=== PATIENT | male | born 1930 | race Caucasian/White ===

== ENCOUNTER 2020-11-13 17:42 | Inpatient (IN) | payer MEDICARE ==
[~2020-11-13] VITALS: Ht 175.3 cm; Wt 54.4 kg
[~2020-11-13 17:42] MED LIST: ASPIR-TRIN325 MG PO; CRESTOR5 MG PO; GABAPENTIN300 MG PO; GLIPIZIDE5 MG PO; LISINOPRIL20 MG PO; METOPROLOL SUCC50 MG PO; PLAVIX75 MG PO; PLETAL50 MG PO
[2020-11-13] MEDS ORDERED: SODIUM CHLORIDE 0.9% 1000ML 1,000 ML IV STA (17:44)
[2020-11-13] MEDS ORDERED: ASPIRIN 81 MG CHEW TAB PO ONE ×2 (17:45→19:30)
[2020-11-13] MEDS ORDERED: ACETAMINOPHEN 325 MG TAB PO STA (18:08)
[2020-11-13 18:52] LABS: BASOPHILS % 0.1 % (0.0-1.0); HEMATOCRIT 31.7 % (38.2-49.6); HEMOGLOBIN 10.2 g/dL (14.0-18.0); LYMPHOCYTES # (AUTO) 0.6 (1.0-3.2); LYMPHOCYTES % 6.9 % (18.0-39.1); MEAN CORPUSCULAR HEMOGLOBIN 29.7 pg (28-32); MEAN CORPUSCULAR HGB CONC 32.2 g/dL (31-35); MEAN CORPUSCULAR VOLUME 92.4 fL (81-99); MONOCYTES # (AUTO) 0.9 (0.2-0.8); MONOCYTES % 11.7 % (4.4-11.3); NEUTROPHILS # (AUTO) 6.4 (2.1-6.9); NEUTROPHILS % 80.5 % (38.7-80.0); PLATELET COUNT 180 x10e3/uL (140-360); RED BLOOD COUNT 3.43 x10e6/uL (4.3-5.7); RED CELL DISTRIBUTION WIDTH 15.7 % (11.7-14.4)
[2020-11-13 19:10] LABS: ALBUMIN 3.6 g/dL (3.5-5.0); ALBUMIN/GLOBULIN RATIO 1.1 (0.8-2.0); ANION GAP 18.8 mmol/L (8-16); CALCIUM 8.5 mg/dL (8.4-10.2); CREATININE, SERUM 1.68 mg/dL (0.72-1.25); POTASSIUM 3.8 mmol/L (3.5-5.1)
[2020-11-13 19:16] LABS: CREATINE KINASE MB 1.8 ng/mL (0-5.0)
[2020-11-13] MEDS ORDERED: ENOXAPARIN INJ 80 MG/0.8 ML SYR SC STA (19:44)
[2020-11-13] MEDS ORDERED: FUROSEMIDE INJ 10 MG/ML 2 ML VIAL IV STA (19:44)
[2020-11-13] MEDS ORDERED: ASPIRIN 325 MG TAB PO STA (19:44)
[2020-11-13] MEDS ORDERED: CLOPIDOGREL BISULFATE 75 MG TAB PO STA (19:44)
[2020-11-13] MEDS ORDERED: ASPIRIN 81 MG CHEW TAB ONE (19:50)
[2020-11-13] MEDS: PIPERACILLIN/TAZOBACTAM 3.375 GM in SODIUM CHLORIDE 0.9% 50ML 50 ML IV SCH (19:52)
[2020-11-13 19:56] LABS: CLARITY,URINE SL CLOUDY (CLEAR); COLOR,URINE AMBER (YELLOW); KETONES,URINE NEGATIVE (NEGATIVE); LEUKOCYTE ESTERASE ,URINE TRACE (NEGATIVE); NITRITE,URINE NEGATIVE (NEGATIVE); PROTEIN,URINE DIPSTICK >=300 (NEGATIVE); URINE UROBILINOGEN 0.2 mg/dL (0.2 - 1)
[2020-11-13] MEDS ORDERED: ONDANSETRON HCL INJ 2MG/ML 2ML 2 MG/ML VIAL IV PRN ×2 (20:00→21:15)
[2020-11-13] MEDS ORDERED: MORPHINE SULFATE INJ 4 MG/ML INJ 1ML IV PRN (20:00)
[2020-11-13 20:09] LABS: BACTERIA,URINE MODERATE /HPF; RBC,URINE 21-50 /HPF (0-5); WBC,URINE (MAN) 0-5 /HPF (0-5)
[2020-11-13] MEDS ORDERED: ENOXAPARIN SOD INJ 60 MG/0.6 ML SYR SC STA (20:22)
[2020-11-13] MEDS ORDERED: ENOXAPARIN SOD INJ 60 MG/0.6 ML SYR SC ONE (20:31)
[2020-11-13] MEDS ORDERED: CLOPIDOGREL BISULFATE 75 MG TAB ONE (20:34)
[2020-11-13] MEDS ORDERED: TEMAZEPAM 7.5 MG CAP PO PRN (21:15)
[2020-11-13] MEDS ORDERED: POLYETHYLENE GLYCOL 3350 17 GM PACK PO PRN (21:15)
[2020-11-13] MEDS ORDERED: HYDRALAZINE HCL 20 MG/ML VIAL IV PRN (21:15)
[2020-11-13] MEDS ORDERED: DEXTROSE 50% SYRINGE 50 ML IV PRN (21:45)
[2020-11-13] MEDS ORDERED: HYDRALAZINE HCL50 MG PO (21:51)
[2020-11-13] MEDS ORDERED: LASIX20 MG PO (21:51)
[2020-11-13] MEDS ORDERED: QUETIAPINE FUMA25 MG PO (21:51)
[2020-11-14] VITALS (9 sets, daily range): BP systolic 102–114; BP diastolic 62–83
[2020-11-14 05:55] LABS: BASOPHILS % 0.2 % (0.0-1.0); HEMATOCRIT 25.3 % (38.2-49.6); HEMOGLOBIN 8.6 g/dL (14.0-18.0); LYMPHOCYTES # (AUTO) 0.5 (1.0-3.2); MEAN CORPUSCULAR VOLUME 94.1 fL (81-99); MONOCYTES # (AUTO) 0.8 (0.2-0.8); MONOCYTES % 14.1 % (4.4-11.3); NEUTROPHILS # (AUTO) 4.4 (2.1-6.9); NEUTROPHILS % 76.3 % (38.7-80.0); PLATELET COUNT 143 x10e3/uL (140-360); RED BLOOD COUNT 2.69 x10e6/uL (4.3-5.7); RED CELL DISTRIBUTION WIDTH 16.2 % (11.7-14.4)
[2020-11-14 06:17] LABS: ALBUMIN 2.8 g/dL (3.5-5.0); ALBUMIN/GLOBULIN RATIO 1.1 (0.8-2.0); ANION GAP 12.5 mmol/L (8-16); CALCIUM 7.7 mg/dL (8.4-10.2); CREATININE, SERUM 1.62 mg/dL (0.72-1.25); POTASSIUM 3.5 mmol/L (3.5-5.1)
[2020-11-14] MEDS: PIPERACILLIN/TAZOBACTAM 3.375 GM in SODIUM CHLORIDE 0.9% 50ML 50 ML IV SCH ×5 (06:22→17:26)
[2020-11-14] MEDS ORDERED: SODIUM CHLORIDE 0.9% 250ML 250 ML ONE (06:29)
[2020-11-14 06:49] LABS: CHOL/HDL RATIO 2.9 (3.9-4.7); PHOSPHORUS 4.7 MG/DL (2.3-4.7)
[2020-11-14 07:09] LABS: THYROID STIMULATING HORMONE 1.543 uIU/mL (0.350-4.940)
[2020-11-14] MEDS ORDERED: DONEPEZIL HCL5 MG (07:28)
[2020-11-14] MEDS: INSULIN REGULAR, HUMAN 100 UNIT/1 ML 3ML VIAL SQ SCH ×4 (07:30→20:50)
[2020-11-14] MEDS: FAMOTIDINE 20 MG TAB PO SCH ×2 (08:54→17:24)
[2020-11-14] MEDS: DOCUSATE SODIUM 100 MG CAP PO SCH ×2 (08:55→17:24)
[2020-11-14] MEDS ORDERED: FUROSEMIDE INJ 10 MG/ML 4 ML VIAL IV ONE (10:00)
[2020-11-14 13:51] LABS: CREATINE KINASE MB 6.3 ng/mL (0-5.0)
[2020-11-14] MEDS: CARVEDILOL 3.125 MG TAB PO SCH (17:24)
[2020-11-14] MEDS: ENOXAPARIN SOD INJ 40 MG/0.4 ML SYR SC SCH (17:26)
[2020-11-14] MEDS: HYDRALAZINE HCL 25 MG TAB PO SCH (17:27)
[2020-11-14] MEDS: SIMVASTATIN 20 MG TAB PO SCH (21:00)
[2020-11-14] MEDS: ACETAMINOPHEN 325 MG TAB PO PRN (21:12)
[2020-11-15] VITALS (8 sets, daily range): BP systolic 76–117; BP diastolic 42–85
[2020-11-15 05:28] LABS: BASOPHILS % 0.2 % (0.0-1.0); EOSINOPHILS % 0.5 % (0.0-6.0); HEMOGLOBIN 8.8 g/dL (14.0-18.0); LYMPHOCYTES # (AUTO) 0.7 (1.0-3.2); MEAN CORPUSCULAR HEMOGLOBIN 29.6 pg (28-32); MEAN CORPUSCULAR HGB CONC 30.3 g/dL (31-35); MONOCYTES % 17.1 % (4.4-11.3); NEUTROPHILS # (AUTO) 3.8 (2.1-6.9); NEUTROPHILS % 68.8 % (38.7-80.0); PLATELET COUNT 135 x10e3/uL (140-360); RED BLOOD COUNT 2.97 x10e6/uL (4.3-5.7); RED CELL DISTRIBUTION WIDTH 15.4 % (11.7-14.4)
[2020-11-15 05:32] LABS: MEAN CORPUSCULAR VOLUME 97.6 fL (81-99)
[2020-11-15 05:48] LABS: ALBUMIN 2.6 g/dL (3.5-5.0); ANION GAP 17.4 mmol/L (8-16); CALCIUM 7.7 mg/dL (8.4-10.2); CREATININE, SERUM 1.66 mg/dL (0.72-1.25); POTASSIUM 3.4 mmol/L (3.5-5.1)
[2020-11-15] MEDS: PIPERACILLIN/TAZOBACTAM 3.375 GM in SODIUM CHLORIDE 0.9% 50ML 50 ML IV SCH ×5 (06:00→18:00)
[2020-11-15] MEDS: INSULIN REGULAR, HUMAN 100 UNIT/1 ML 3ML VIAL SQ SCH ×4 (07:30→21:00)
[2020-11-15] MEDS: FAMOTIDINE 20 MG TAB PO SCH ×2 (08:03→16:30)
[2020-11-15] MEDS: FUROSEMIDE 40 MG TAB PO SCH (10:17)
[2020-11-15] MEDS: CLOPIDOGREL BISULFATE 75 MG TAB PO SCH (10:17)
[2020-11-15] MEDS: CARVEDILOL 3.125 MG TAB PO SCH ×2 (10:17→17:00)
[2020-11-15] MEDS: HYDRALAZINE HCL 25 MG TAB PO SCH ×2 (10:17→19:11)
[2020-11-15] MEDS: DOCUSATE SODIUM 100 MG CAP PO SCH ×2 (10:17→17:00)
[2020-11-15] MEDS ORDERED: TEMAZEPAM 15 MG CAP PO PRN (15:45)
[2020-11-15] MEDS: ENOXAPARIN SOD INJ 40 MG/0.4 ML SYR SC SCH (19:11)
[2020-11-15] MEDS: SIMVASTATIN 20 MG TAB PO SCH (21:00)
[2020-11-15] MEDS ORDERED: MELATONIN 3 MG TAB PO SCH (21:00)
[2020-11-16 00:13] VITALS: BP 88/55
[2020-11-16 05:13] VITALS: BP 98/67
[2020-11-16 05:21] LABS: BASOPHILS % 0.2 % (0.0-1.0); EOSINOPHILS # (AUTO) 0.1 (0.0-0.4); EOSINOPHILS % 1.9 % (0.0-6.0); HEMATOCRIT 32.2 % (38.2-49.6); HEMOGLOBIN 10.3 g/dL (14.0-18.0); LYMPHOCYTES # (AUTO) 1.1 (1.0-3.2); LYMPHOCYTES % 20.1 % (18.0-39.1); MEAN CORPUSCULAR HEMOGLOBIN 29.9 pg (28-32); MEAN CORPUSCULAR VOLUME 93.6 fL (81-99); MONOCYTES # (AUTO) 0.7 (0.2-0.8); MONOCYTES % 12.6 % (4.4-11.3); NEUTROPHILS # (AUTO) 3.4 (2.1-6.9); NEUTROPHILS % 64.8 % (38.7-80.0); PLATELET COUNT 170 x10e3/uL (140-360); RED BLOOD COUNT 3.44 x10e6/uL (4.3-5.7); RED CELL DISTRIBUTION WIDTH 15.5 % (11.7-14.4)
[2020-11-16 05:53] LABS: ANION GAP 17.5 mmol/L (8-16); CALCIUM 8.1 mg/dL (8.4-10.2); CREATININE, SERUM 1.71 mg/dL (0.72-1.25); POTASSIUM 3.5 mmol/L (3.5-5.1)
[2020-11-16] MEDS: PIPERACILLIN/TAZOBACTAM 3.375 GM in SODIUM CHLORIDE 0.9% 50ML 50 ML IV SCH ×5 (06:00→18:00)
[2020-11-16] MEDS: FAMOTIDINE 20 MG TAB PO SCH ×2 (07:30→18:17)
[2020-11-16] MEDS: INSULIN REGULAR, HUMAN 100 UNIT/1 ML 3ML VIAL SQ SCH ×3 (07:30→16:30)
[2020-11-16 08:35] VITALS: BP 117/80
[2020-11-16 08:44] VITALS: BP 117/80
[2020-11-16] MEDS: CLOPIDOGREL BISULFATE 75 MG TAB PO SCH (09:00)
[2020-11-16] MEDS: DOCUSATE SODIUM 100 MG CAP PO SCH ×2 (09:00→17:00)
[2020-11-16] MEDS: CARVEDILOL 3.125 MG TAB PO SCH ×2 (09:00→17:00)
[2020-11-16] MEDS: FUROSEMIDE 40 MG TAB PO SCH (09:00)
[2020-11-16] MEDS: HYDRALAZINE HCL 25 MG TAB PO SCH ×2 (09:00→17:00)
[2020-11-16] MEDS: ACETAMINOPHEN 325 MG TAB PO PRN (10:10)
[2020-11-16 12:59] VITALS: BP 116/83
[2020-11-16] MEDS ORDERED: COREG3.125 MG PO (13:51)
[2020-11-16] MEDS ORDERED: FUROSEMIDE40 MG PO (13:51)
[2020-11-16] MEDS ORDERED: HYDRALAZINE HCL25 MG PO (13:51)
[2020-11-16 15:38] VITALS: BP 99/65
[2020-11-16] MEDS: ENOXAPARIN SOD INJ 40 MG/0.4 ML SYR SC SCH (17:00)
== END 2020-11-16 18:21 | disposition home or self-care (01) | DRG 280 ==
LOC: ER 17:57 → ERHOLD 20:14 → MED/SURG3 11-14 00:53
PROVIDERS: ADMIT Internal Medicine; ATTEND Internal Medicine
DX: I13.0 Hypertensive heart and chronic kidney disease with heart failure and stage 1 through stage 4 chronic kidney disease, or unspecified chronic kidney disease (principal); J69.0 Pneumonitis due to inhalation of food and vomit; I21.4 Non-ST elevation (NSTEMI) myocardial infarction; I50.23 Acute on chronic systolic (congestive) heart failure; N39.0 Urinary tract infection, site not specified; Z68.1 Body mass index [BMI] 19.9 or less, adult; E44.1 Mild protein-calorie malnutrition; N18.30 Chronic kidney disease, stage 3 unspecified; E11.22 Type 2 diabetes mellitus with diabetic chronic kidney disease; I48.91 Unspecified atrial fibrillation; R62.7 Adult failure to thrive; H35.30 Unspecified macular degeneration; D63.8 Anemia in other chronic diseases classified elsewhere; E78.00 Pure hypercholesterolemia, unspecified; Z95.1 Presence of aortocoronary bypass graft; Z95.820 Peripheral vascular angioplasty status with implants and grafts; Z20.822 Contact with and (suspected) exposure to COVID-19; E11.51 Type 2 diabetes mellitus with diabetic peripheral angiopathy without gangrene
CPT/HCPCS: 36415; 70450; 71045; 80048; 80053; 80061; 81001; 82550; 82553; 82948; 83036; 83605; 83735; 83880; 84100; 84443; 84484; 85025; 87040; 93005; 93306; 97139; 99251; 99285; J1650; J1940; J2543; J7050; U0002